=== PATIENT | male | born 1975 | race Caucasian/White ===

== ENCOUNTER 2022-07-30 07:51 | Emergency (ER) | payer OTHER, SELFPAY ==
--- NOTE | ~2022-07-30 | XR_ITS ---
EXAMINATION: XR LUMBOSACRAL SPINE CLINICAL INFORMATION: Lumbar pain, spasms COMPARISON: None available. TECHNIQUE: Three views of the lumbosacral spine. FINDINGS: The vertebral bodies and posterior elements are normal. The disc spaces are preserved and the vertebral alignment is normal. The paraspinal soft tissues are normal. XR/XR lumbar spine 2-3V IMPRESSION: Unremarkable lumbar spine examination.
[2022-07-30 07:56] VITALS: BP 130/104; PULSE 69; O2SAT 97
--- NOTE | 2022-07-30 07:57 | ED.GENADULT ---
HPI - General Adult General Chief complaint: Back Pain/Injury Stated complaint: LOW LISANDRO PAIN/SPASMS,NO INJURY PER EMS PER EMS Time Seen by Provider: 07/30/22 07:57 Source: patient Mode of arrival: ambulatory Limitations: no limitations History of Present Illness HPI narrative: Patient is a 47-year-old male with no past medical history presenting with lower back pain since when he was bending over to put his socks on. He denies any trauma. He reports this morning he developed lower back spasms. Denies any history previous back injuries or surgeries. He denies any fevers, abdominal pain, urinary symptoms. He denies any radiation of pain to his legs. He denies any saddle anesthesia, bowel or bladder incontinence, numbness or tingling to his legs. He denies any IV drug use. He denies any urinary retention or other urinary symptoms. he has used ice, heat ibuprofen with little relief and this morning gave him 10 mg of Valium. Patient reports that the Valium did decrease the strength and frequency of his back spasms. He has been able to ambulate without difficulty. Related Data Previous Rx's Medication Instructions Recorded cyclobenzaprine 5 mg tablet 5 mg PO TID PRN muscle spasm #15 07/30/22 tabs lidocaine 5 % topical patch 1 patch topical DAILY #15 ea 07/30/22 prednisone 50 mg tablet 50 mg PO DAILY #4 tabs 07/30/22 Allergies Allergy/AdvReac Type Severity Reaction Status Date / Time No Known Allergies Allergy Unverified 12/12/19 19:19 [No Known Allergies*] Review of Systems Review of Systems: As per HPI Yes all other systems are reviewed and are negative Constitutional: Constitutional: Reports as per HPI [facility] Social History Social History Advance Directives: Yes Advance Directives on File: No Physical Exam ED Vital Signs: Vital Signs - 24 hr 07/30/22 07:58 Temperature 98 F Pulse Rate 83 Respiratory Rate 17 Blood Pressure 140/93 H Pulse Oximetry 98 Oxygen Delivery Method Room Air BMI result Body Mass Index 29.6 Const General: cooperative, healthy appearing and no acute distress Orientation/consciousness: oriented to person, oriented to place, oriented to time and patient oriented x3 Limitations: no limitations HENMT Head: Yes normocephalic and Yes atraumatic Ears: external ears normal General nose exam: Normal external nose present Face and sinus: Yes face symmetric Mouth: oropharynx normal and moist mucous membranes Throat: Yes uvula midline Eyes Pupils: Equal, round and reactive pupils present Neck Neck: Yes normal visual inspection and Yes supple Resp Effort & Inspection: normal respiratory effort and able to speak in complete sentences Auscultation: clear to auscultation bilaterally Cardio Rate: regular rate Rhythm: regular rhythm Heart sounds: S1 normal heart sound present and S2 normal heart sound present GI Palpation (GI): Soft to palpation and nontender Auscultation: normoactive bowel sounds General: Yes no CVA tenderness Back/Spine/Pelvis Back: no CVA tenderness Thoracic/Lumbar Spine: thoracic and lumbar spine normal to inspection, No Thoracic/lumbar spine scar(s), straight leg raise negative bilaterally, No mass, pain with thoraco-lumbar ROM, No paraspinal muscle tenderness, thoraco-lumbar ROM limited with forward flexion, with lateral flexion to the right, with lateral flexion to the left, with rotation to the right and with rotation to the left, thoraco-lumbar spasm bilaterally, No thoracic spinal tenderness, No lumbar spinal tenderness and No tilt present Pelvis: no pain with anterior-posterior compression, no pain with lateral compression and no sciatic notch tenderness Skin General skin exam: elasticity normal and turgor normal Neuro General: oriented to person, oriented to place, oriented to time, patient oriented x3, moves all extremities, Normal light touch and pain sensation, no focal motor deficits, CN's II-XI intact bilaterally and deep tendon reflexes 2+ bilaterally Cranial nerves: Yes Equal, round and reactive pupils present Cognition (Neuro): normal cognition Motor exam (neuro): Normal motor muscle tone present throughout Extrem General: Yes no pedal edema and Yes no calf tenderness Right lower extremity: normal to inspection, full ROM, normal capillary refill and foot Details: vascular exam Details: dorsalis pedis pulse present, posterior tibial pulse present and normal capillary refill Left lower extremity: normal to inspection, full ROM, normal capillary refill and foot Details: normal capillary refill and vascular exam Details: dorsalis pedis pulse present and posterior tibial pulse present Psych Mental Status: mental status grossly normal Affect: normal affect Thought process: Normal thought process present Course Course Course Narrative: 09:26 Patient re-evaluated, states pain has not changed after initial medications. Will medicate with additional dose of oxycodone and reassess. 10:50 Patient continues to report very minimal relief of pain after medications, ROM limited by pain. Will obtain lumbar x-ray, order prednisone and Flexeril. 11:28 FINDINGS: The vertebral bodies and posterior elements are normal. The disc spaces are preserved and the vertebral alignment is normal. The paraspinal soft tissues are normal. XR/XR lumbar spine 2-3V IMPRESSION: Unremarkable lumbar spine examination. Patient reports improvement in pain after prednisone and Flexeril. Feel patient is safe to discharge home at this time with short course of prednisone, Flexeril as needed, continue with Tylenol and ibuprofen, alternating ice and heat, gentle stretching exercises. return precautions discussed at bedside and patient advised to follow-up with PCP. Medications Administered Discontinued Medications Generic Name Dose Route Start Last Admin Trade Name Freq PRN Reason Stop Dose Admin Cyclobenzaprine HCl 10 mg 07/30/22 10:41 07/30/22 10:56 Cyclobenzaprine Hcl 10 Mg Tablet PO 07/30/22 10:42 10 mg ONCE ONE Administration Ketorolac Tromethamine 30 mg 07/30/22 08:07 07/30/22 08:24 Ketorolac Tromethamine 30 Mg/Ml Vial IM 07/30/22 08:08 30 mg ONCE ONE Administration Oxycodone HCl 5 mg 07/30/22 08:07 07/30/22 08:21 Oxycodone Hcl Immed Release 5 Mg Tablet PO 07/30/22 08:08 5 mg ONCE ONE Administration Oxycodone HCl 5 mg 07/30/22 09:26 07/30/22 09:32 Oxycodone Hcl Immed Release 5 Mg Tablet PO 07/30/22 09:27 5 mg ONCE ONE Administration Prednisone 50 mg 07/30/22 10:41 07/30/22 10:56 Prednisone 10 Mg Tablet PO 07/30/22 10:42 50 mg ONCE ONE Administration Medical Decision Making Medical Decision Making MDM Narrative: Patient is a 47-year-old male with no past medical history presenting with lower back pain since when he was bending over to put his socks on. On exam patient is nontoxic appearing, vital signs WNL, afebrile, no focal neurological deficits, no red flag findings, no midline thoracic or lumbar spinal tenderness, no CVA tenderness, abdomen soft and nontender, increased pain/spasms with ROM. Concern for lumbar strain, lumbar radiculopathy, musculoskeletal spasms, disc herniation. Lower concern for UTI, pyelonephritis, fracture, spinal epidural abscess, cauda equina, cord compression, osteomyelitis, malignancy/mass, AAA rupture, or retroperitoneal hemorrhage. Given the clinical picture, no indication for imaging at this time. Plan: pain control, likely discharge home Please refer to course for remaining clinical decision making. Differential Diagnosis Differential Diagnoses: The differential diagnosis associated with the presentation includes As above. Independent Interpretation I performed an independent interpretation of an: Plain X-Ray Interpretation: I independently reviewed the x-ray and agree with the radiologist's interpretation. Radiology Impression Discussion of test interpretation with radiology: I have reviewed the radiologist's reading. Radiologist Impression: FINDINGS: The vertebral bodies and posterior elements are normal. The disc spaces are preserved and the vertebral alignment is normal. The paraspinal soft tissues are normal. XR/XR lumbar spine 2-3V IMPRESSION: Unremarkable lumbar spine examination. Independent Historian Clinical information obtained from an independent historian. History obtained from or confirmed by: Spouse External Record Review External record reviewed: Inpatient record, Office record and Outpatient record Prescription Management I considered prescription management with: Pain Medication Discharge Plan Discharge Clinical Impression: Strain of lumbar region Patient Disposition: Home, Self-Care Instructions: Low Back Strain (ED), Acute Low Back Pain (ED), Lower Back Exercises (ED) Additional Instructions: You were evaluated in the emergency department today for back pain. Your evaluation did not show signs of medical conditions requiring emergent intervention at this time. We recommended that you use ibuprofen or Tylenol per package directions every 6 hours as needed for pain. If necessary, you can alternate these medications so that you take one medication every 3 hours. For instance, at noon take ibuprofen, then at 3:00 p.m. take Tylenol, then at 6:00 p.m. take ibuprofen. You have been prescribed a short course prednisone which is a steroid to decrease inflammation. You have been prescribed a muscle relaxer which you may take every 8 hours as needed for spasms. You have been prescribed 5% topical lidocaine patches which you can wear for up to 12 hours in a 24 hour period. Do not apply heat directly over the patches. Please schedule an appointment for follow-up with your primary care physician this week for further evaluation of your symptoms. Return to the emergency department if you experience worsening back pain, difficulty walking, fevers, numbness, tingling, incontinence, groin numbness or tingling, or any other concerning symptoms. Prescriptions: New lidocaine 5 % adhesive patch,medicated 1 patch topical DAILY Qty: 15 0RF Rx Instructions: leave on most painful area for up to 12 hrs cyclobenzaprine 5 mg tablet 5 mg PO TID PRN (Reason: muscle spasm) Qty: 15 0RF prednisone 50 mg tablet 50 mg PO DAILY Qty: 4 0RF
[2022-07-30 07:58] VITALS: BP 140/93; PULSE 83; RESP 17; TEMP 36.6; O2SAT 98; BMI 29.6
[2022-07-30] MEDS: oxyCODONE HCl Immed Release 5 MG TABLET PO ×2 (08:21→09:32)
[2022-07-30] MEDS: Ketorolac Tromethamine 30 MG/ML VIAL IM (08:24)
--- NOTE | 2022-07-30 09:36 | PC.NURSE ---
PT APPEARS A LITTLE MORE COPMFORTABLE, STATES HE IS NOT AND DOES APPEAR IN PAIN W ANY MOVEMENT, MEDICATED ORDERED
--- NOTE | 2022-07-30 10:23 | PC.NURSE ---
pt appears more comfortable and denies much pain at rest but w movement has sharp intense pain, will reassess in a little more time to allow oxycodone to work
[2022-07-30] MEDS: Cyclobenzaprine HCl 10 MG TABLET PO (10:56)
[2022-07-30] MEDS: predniSONE 10 MG TABLET 50 MG PO (10:56)
== END 2022-07-30 11:52 | disposition home or self-care (01) ==
PROVIDERS: Emergency Provider Emergency Medicine; PCP Internal Medicine
DX: S39.012A Strain of muscle, fascia and tendon of lower back, initial encounter (principal); X50.9XXA Other and unspecified overexertion or strenuous movements or postures, initial encounter; Y93.89 Activity, other specified; Y92.019 Unspecified place in single-family (private) house as the place of occurrence of the external cause; Y99.9 Unspecified external cause status
CPT/HCPCS: 72100; 96372; 99283; 99284; J1885